=== PATIENT | female | born 1985 | race Caucasian/White ===

== ENCOUNTER 2020-10-18 07:31 | Emergency (ER) | payer MEDICAID ==
[~2020-10-18] VITALS: Ht 162.6 cm; Wt 98.2 kg
[~2020-10-18 07:31] MED LIST: BAC15O TP; HYDR-4353 PO; LACT1CAP65 PO
--- NOTE | 2020-10-18 09:26 | NUR ---
Phone given to pt to call for a ride per EDMD
[2020-10-18 10:33] VITALS: BP 140/87
== END 2020-10-18 10:28 | disposition home or self-care (01) ==
LOC: ER 07:32
DX: R41.82 Altered mental status, unspecified (principal); T40.411A Poisoning by fentanyl or fentanyl analogs, accidental (unintentional), initial encounter; F17.210 Nicotine dependence, cigarettes, uncomplicated; F15.10 Other stimulant abuse, uncomplicated; J45.909 Unspecified asthma, uncomplicated; Y90.9 Presence of alcohol in blood, level not specified
CPT/HCPCS: 99285

== ENCOUNTER 2021-10-01 00:55 | Emergency (ER) | payer MEDICAID ==
[~2021-10-01] VITALS: Ht 162.6 cm; Wt 88.6 kg
[2021-10-01] MEDS: vancomycin inj 1,000 MG in normal saline 250ml IV soln 250 ML IV ONE ×2 (02:35→05:47)
[2021-10-01] MEDS ORDERED: normal saline 1000ml 1,000 ML IV ONE (02:35)
[2021-10-01] MEDS ORDERED: METH-603 PO (02:43)
[2021-10-01 03:52] LABS: BASOPHILS % (AUTO) 0.2 % (0-1); EOSINOPHILS % (AUTO) 0.4 % (0-6); HEMATOCRIT 32.3 % (35.0-45.0); HEMOGLOBIN 10.8 g/dl (12.0-16.0); LYMPHOCYTES # (AUTO) 3.8 X10'3 (1.1-4.8); LYMPHOCYTES % (AUTO) 37.3 % (21-51); MEAN CORPUSCULAR HEMOGLOBIN 27.9 PG (27.0-31.0); MEAN CORPUSCULAR HGB CONC 33.4 g/dL (33.0-36.5); MEAN CORPUSCULAR VOLUME 83.6 FL (78-98); MEAN PLATELET VOLUME 9.4 FL (7.4-10.4); MONOCYTES % (AUTO) 9.4 % (2-12); NEUTROPHILS # (AUTO) 5.4 X10'3 (1.8-7.7); NEUTROPHILS % (AUTO) 52.7 % (42-75); PLATELET COUNT 175 X10'3 (140-440); RED BLOOD COUNT 3.87 X10'6 (4.20-5.60); RED CELL DISTRIBUTION WIDTH 14.1 % (11.5-14.5); WHITE BLOOD COUNT 10.2 X10'3 (4.5-11.0)
[2021-10-01 04:18] LABS: ALANINE AMINOTRANSFERASE 23 U/L (12-78); ALBUMIN 3.2 G/DL (3.4-5.0); ALBUMIN/GLOBULIN RATIO 0.8 (1.1-1.5); ALKALINE PHOSPHATASE 64 IU/L (46-116); ANION GAP 7 (8-16); ASPARTATE AMINO TRANSFERASE 17 U/L (10-37); BILIRUBIN,TOTAL 0.2 MG/DL (0.1-1.0); BLOOD UREA NITROGEN 10 MG/DL (7-18); BUN/CREATININE RATIO 12.7 (6.6-38.0); CALCIUM 8.1 MG/DL (8.5-10.1); CHLORIDE 104 MMOL/L (99-107); CREATININE 0.79 MG/DL (0.40-0.90); MAGNESIUM 1.8 MG/DL (1.5-2.4); POTASSIUM 3.6 MMOL/L (3.5-5.1); SODIUM 141 MMOL/L (135-145); TOTAL CARBON DIOXIDE 30.5 MMOL/L (24-32); TOTAL PROTEIN 7.1 G/DL (6.4-8.2); eGFR 82 ML/MIN
[2021-10-01 04:20] LABS: GLUCOSE 92 MG/DL (70-104)
[2021-10-01] MEDS ORDERED: vancomycin inj 1,000 MG in normal saline 250ml IV soln 250 ML IV ONE (04:30)
[2021-10-01] MEDS ORDERED: clindamycin 300mg/D5W 50mL 50 ML IV ONE (04:35)
[2021-10-01] MEDS ORDERED: CLIN-97 PO (04:35)
--- NOTE | 2021-10-01 04:52 | NUR ---
Pt is aware of need for urine specimen
[2021-10-01 07:55] VITALS: BP 124/68
== END 2021-10-01 07:57 | disposition home or self-care (01) ==
LOC: ER 00:56
DX: L03.116 Cellulitis of left lower limb (principal); L03.115 Cellulitis of right lower limb; J45.909 Unspecified asthma, uncomplicated; Z86.14 Personal history of Methicillin resistant Staphylococcus aureus infection; Z79.899 Other long term (current) drug therapy; F15.10 Other stimulant abuse, uncomplicated
CPT/HCPCS: 36415; 80053; 83605; 83735; 84145; 85025; 87040; 96361; 96365; 96366; 96368; 99285; J3370; J3490; J7030; J7050